=== PATIENT | male | born 2000 | race Caucasian/White ===

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

== ENCOUNTER 2021-08-12 17:23 | Emergency (ER) | payer MEDICAID ==
[~2021-08-12 17:23] MED LIST changes: +TORADOL PO
== END 2021-08-12 19:09 | disposition home or self-care (01) | DRG 951 ==
LOC: ED 17:23 → LWOBS 19:09
DX: Z53.21 Procedure and treatment not carried out due to patient leaving prior to being seen by health care provider (principal)

== ENCOUNTER 2021-11-13 14:46 | Emergency (ER) | payer MEDICAID ==
[~2021-11-13] VITALS: Ht 170.2 cm; Wt 85.0 kg
[2021-11-13 17:55] LABS: HEMATOCRIT 48.5 % (39.0-50.0); IMMATURE GRANULOCYTES 0.1 % (0.0-5.0); MEAN CELL VOLUME 86.1 fL CALC (80.0-100.0); MEAN CORPUSCULAR HGB 30.9 pG CALC (26.0-32.0); MEAN CORPUSCULAR HGB CONC 35.9 g/dL CAL (32.0-36.0); NEUT# 12.5 thou/uL (1.82-7.42); RED BLOOD COUNT 5.63 mill/uL (4.70-6.10); RED CELL DISTRI WIDTH 11.6 % (11.5-15.5)
[2021-11-13 17:58] LABS: HEMOGLOBIN 17.4 g/dl (14.0-18.0)
[2021-11-13 18:08] LABS: ALBUMIN 4.8 g/dL (3.2-5.0); ALKALINE PHOSPHATASE 98 u/l (38-126); ANION GAP 17 (6-22 (CALC)); BILIRUBIN, TOTAL 1.1 mg/dL (0.0-1.4); BUN 13 mg/dL (9-20); BUN/CREATININE RATIO 15 (12-20 (CALC)); CARBON DIOXIDE 23 mmol/l (22-30); CHLORIDE 102 mmol/l (95-108); CREATININE 0.9 mg/dL (0.7-1.3); GFR > 60 ML/MIN (>=60 (CALC)); GFR FOR AFR.AMER. > 60 ML/MIN (>=60 (CALC)); POTASSIUM 3.9 mmol/l (3.5-5.1); SGOT/AST 24 u/l (17-59); SODIUM 138 mmol/l (137-146); TOTAL PROTEIN 8.5 g/dL (6.3-8.2)
[2021-11-13] MEDS ORDERED: ZOFRAN4 M1 PO (18:16)
[2021-11-13 18:26] VITALS: BP 148/88
== END 2021-11-13 18:51 | disposition home or self-care (01) ==
LOC: ED 14:46
PROVIDERS: Family Medicine
DX: K52.9 Noninfective gastroenteritis and colitis, unspecified (principal); Z20.822 Contact with and (suspected) exposure to COVID-19

== ENCOUNTER 2022-01-13 06:42 | Emergency (ER) | payer OTHER, MEDICAID ==
[~2022-01-13] VITALS: Ht 170.2 cm; Wt 76.0 kg
[~2022-01-13 06:42] MED LIST changes: +ZOFRAN4 M1 PO
[2022-01-13 07:15] VITALS: BP 128/98
[2022-01-13 07:30] VITALS: BP 125/79
[2022-01-13 08:00] VITALS: BP 135/76
[2022-01-13 08:28] LABS: HEMATOCRIT 46.3 % (39.0-50.0); HEMOGLOBIN 16.3 g/dl (14.0-18.0); IMMATURE GRANULOCYTES 0.3 % (0.0-5.0); MEAN CELL VOLUME 87.7 fL CALC (80.0-100.0); MEAN CORPUSCULAR HGB 30.9 pG CALC (26.0-32.0); MEAN CORPUSCULAR HGB CONC 35.2 g/dL CAL (32.0-36.0); NEUT# 4.48 thou/uL (1.82-7.42); RED BLOOD COUNT 5.28 mill/uL (4.70-6.10); RED CELL DISTRI WIDTH 11.8 % (11.5-15.5)
[2022-01-13 08:35] LABS: ALBUMIN 4.7 g/dL (3.2-5.0); ALKALINE PHOSPHATASE 82 u/l (38-126); ANION GAP 14 (6-22 (CALC)); BUN 13 mg/dL (9-20); BUN/CREATININE RATIO 15 (12-20 (CALC)); CARBON DIOXIDE 22 mmol/l (22-30); CHLORIDE 108 mmol/l (95-108); CREATININE 0.8 mg/dL (0.7-1.3); GFR > 60 ML/MIN (>=60 (CALC)); GFR FOR AFR.AMER. > 60 ML/MIN (>=60 (CALC)); LIPASE 105 u/l (23-300); POTASSIUM 3.8 mmol/l (3.5-5.1); SGOT/AST 27 u/l (17-59); SODIUM 141 mmol/l (137-146); TOTAL PROTEIN 8.3 g/dL (6.3-8.2)
[2022-01-13 08:36] LABS: BILIRUBIN, TOTAL 0.6 mg/dL (0.0-1.4)
[2022-01-13] MEDS ORDERED: IBUPROFEN600 MG PO (08:54)
== END 2022-01-13 09:10 | disposition home or self-care (01) | DRG 313 ==
LOC: ED 06:42
PROVIDERS: Family Medicine
DX: R07.89 Other chest pain (principal); V43.61XA Car passenger injured in collision with sport utility vehicle in traffic accident, initial encounter

== ENCOUNTER 2022-01-23 23:11 | Emergency (ER) | payer OTHER, MEDICAID ==
[~2022-01-23] VITALS: Ht 170.2 cm; Wt 79.0 kg
[~2022-01-23 23:11] MED LIST changes: +IBUPROFEN600 MG PO
[2022-01-23 23:37] VITALS: BP 145/89
[2022-01-24] VITALS (7 sets, daily range): BP systolic 125–145; BP diastolic 74–98
[2022-01-24 00:24] LABS: HEMATOCRIT 44.4 % (39.0-50.0); HEMOGLOBIN 15.7 g/dl (14.0-18.0); IMMATURE GRANULOCYTES 0.1 % (0.0-5.0); MEAN CELL VOLUME 87.9 fL CALC (80.0-100.0); MEAN CORPUSCULAR HGB 31.1 pG CALC (26.0-32.0); MEAN CORPUSCULAR HGB CONC 35.4 g/dL CAL (32.0-36.0); NEUT# 10.55 thou/uL (1.82-7.42); RED BLOOD COUNT 5.05 mill/uL (4.70-6.10); RED CELL DISTRI WIDTH 11.7 % (11.5-15.5)
[2022-01-24 00:33] LABS: ALBUMIN 4.8 g/dL (3.2-5.0); ALKALINE PHOSPHATASE 85 u/l (38-126); ANION GAP 15 (6-22 (CALC)); BUN 16 mg/dL (9-20); BUN/CREATININE RATIO 17 (12-20 (CALC)); CARBON DIOXIDE 25 mmol/l (22-30); CHLORIDE 104 mmol/l (95-108); CREATININE 0.9 mg/dL (0.7-1.3); GFR > 60 ML/MIN (>=60 (CALC)); GFR FOR AFR.AMER. > 60 ML/MIN (>=60 (CALC)); POTASSIUM 4.1 mmol/l (3.5-5.1); SGOT/AST 26 u/l (17-59); SODIUM 139 mmol/l (137-146); TOTAL PROTEIN 8.7 g/dL (6.3-8.2)
[2022-01-24 00:44] LABS: MYOGLOBIN 47 ng/mL (0 - 121)
[2022-01-24] MEDS ORDERED: NAPROXEN500 MG PO (02:27)
== END 2022-01-24 02:37 | disposition home or self-care (01) | DRG 313 ==
LOC: ED 23:11
PROVIDERS: Emergency Medicine
DX: R07.89 Other chest pain (principal); V89.2XXD Person injured in unspecified motor-vehicle accident, traffic, subsequent encounter; B34.9 Viral infection, unspecified; Z20.822 Contact with and (suspected) exposure to COVID-19

== ENCOUNTER 2022-06-10 11:22 | Emergency (ER) | payer MEDICAID ==
[~2022-06-10] VITALS: Ht 170.2 cm; Wt 81.6 kg
[~2022-06-10 11:22] MED LIST changes: +NAPROXEN500 MG PO
[2022-06-10 11:39] VITALS: BP 139/87
[2022-06-10 12:00] VITALS: BP 128/91
[2022-06-10 12:19] LABS: HEMATOCRIT 47.3 % (39.0-50.0); HEMOGLOBIN 16.8 g/dl (14.0-18.0); IMMATURE GRANULOCYTES 0.3 % (0.0-5.0); MEAN CELL VOLUME 87.8 fL CALC (80.0-100.0); MEAN CORPUSCULAR HGB 31.2 pG CALC (26.0-32.0); MEAN CORPUSCULAR HGB CONC 35.5 g/dL CAL (32.0-36.0); NEUT# 4.57 thou/uL (1.82-7.42); RED BLOOD COUNT 5.39 mill/uL (4.70-6.10); RED CELL DISTRI WIDTH 11.8 % (11.5-15.5)
[2022-06-10 12:30] VITALS: BP 128/87
[2022-06-10 12:49] LABS: ALBUMIN 4.8 g/dL (3.2-5.0); ALKALINE PHOSPHATASE 75 u/l (38-126); ANION GAP 13 (6-22 (CALC)); BILIRUBIN, TOTAL 0.9 mg/dL (0.0-1.4); BUN 14 mg/dL (9-20); BUN/CREATININE RATIO 17 (12-20 (CALC)); CARBON DIOXIDE 26 mmol/l (22-30); CHLORIDE 106 mmol/l (95-108); CREATININE 0.8 mg/dL (0.7-1.3); GFR FOR AFR.AMER. > 60 ML/MIN (>=60 (CALC)); GFR OTHER RACES > 60 ML/MIN (>=60 (CALC)); POTASSIUM 3.9 mmol/l (3.5-5.1); SGOT/AST 25 u/l (17-59); SODIUM 141 mmol/l (137-146); TOTAL PROTEIN 8.1 g/dL (6.3-8.2)
[2022-06-10] MEDS ORDERED: METHOCARBAMOL500 MG PO (14:17)
[2022-06-10] MEDS ORDERED: NAPROXEN500 MG PO (14:17)
[2022-06-10] MEDS ORDERED: XANAX0.25 MG PO (14:27)
[2022-06-10 14:30] VITALS: BP 128/87
== END 2022-06-10 14:38 | disposition home or self-care (01) ==
LOC: ED 11:22
PROVIDERS: Family Medicine
DX: R07.89 Other chest pain (principal); F41.9 Anxiety disorder, unspecified

== ENCOUNTER 2023-04-19 01:17 | Emergency (ER) | payer OTHER ==
[~2023-04-19] VITALS: Ht 172.7 cm; Wt 79.0 kg
[~2023-04-19 01:17] MED LIST changes: +METHOCARBAMOL500 MG PO; +XANAX0.25 MG PO
[2023-04-19 01:28] VITALS: BP 141/91
[2023-04-19 01:30] VITALS: BP 142/84
[2023-04-19 01:45] VITALS: BP 139/81
[2023-04-19 02:54] LABS: BASO% 0.1 % (0-3); EOS% 0.2 % (0-8); HEMATOCRIT 51.9 % (39.0-50.0); HEMOGLOBIN 18.2 g/dl (14.0-18.0); IMMATURE GRANULOCYTES 0.6 % (0.0-5.0); LYMPH% 4.4 % (15-41); MEAN CELL VOLUME 86.6 fL CALC (80.0-100.0); MEAN CORPUSCULAR HGB 30.4 pG CALC (26.0-32.0); MEAN CORPUSCULAR HGB CONC 35.1 g/dL CAL (32.0-36.0); NEUT# 15.06 thou/uL (1.82-7.42); NEUT% 89.7 % (42-76); RED BLOOD COUNT 5.99 mill/uL (4.70-6.10); RED CELL DISTRI WIDTH 11.9 % (11.5-15.5)
[2023-04-19 03:15] LABS: ALBUMIN 5.5 g/dL (3.2-5.0); ALKALINE PHOSPHATASE 95 u/l (38-126); AMYLASE 52 u/l (30-110); BUN 18 mg/dL (9-20); BUN/CREATININE RATIO 18 (12-20 (CALC)); CARBON DIOXIDE 27 mmol/l (22-30); CHLORIDE 104 mmol/l (95-108); GFR FOR AFR.AMER. > 60 ML/MIN (>=60 (CALC)); GFR OTHER RACES > 60 ML/MIN (>=60 (CALC)); LIPASE 71 u/l (23-300); SGOT/AST 30 u/l (17-59); SODIUM 141 mmol/l (137-146); TOTAL PROTEIN 9.4 g/dL (6.3-8.2)
[2023-04-19 03:17] LABS: ANION GAP 15 (6-22 (CALC)); BILIRUBIN, TOTAL 1.7 mg/dL (0.2-1.3); POTASSIUM 5.2 mmol/l (3.5-5.1)
[2023-04-19 05:27] LABS: URINE BILIRUBIN - DIPSTICK NEGATIVE (NEGATIVE); URINE BLOOD DIPSTICK TRACE-LYSED (NEGATIVE); URINE COLOR YELLOW; URINE GLUCOSE - DIPSTICK NEGATIVE (NEGATIVE); URINE KETONE 15 mg/dL (NEGATIVE); URINE LEUK ESTERASE NEGATIVE (NEGATIVE); URINE PH 7.5 (4.5-8.0); URINE PROTEIN - DIPSTICK TRACE mg/dL (NEG-TRACE); URINE SPECIFIC GRAVITY 1.015; URINE UROBILINOGEN - DIPSTICK 0.2 E.U./dL (0.2)
[2023-04-19 05:33] LABS: URINE NITRITE - DIPSTICK NEGATIVE (Negative)
[2023-04-19] MEDS ORDERED: ONDANSETRON4 MG PO (06:10)
[2023-04-19] MEDS ORDERED: LOMOTIL2.5 MG PO (06:10)
[2023-04-19] MEDS ORDERED: CIPROFLOXACN500 MG PO (06:10)
[2023-04-19 06:55] VITALS: BP 139/81
== END 2023-04-19 06:55 | disposition home or self-care (01) | DRG 392 ==
LOC: ED 01:17
PROVIDERS: Emergency Medicine
DX: K52.9 Noninfective gastroenteritis and colitis, unspecified (principal); Z20.822 Contact with and (suspected) exposure to COVID-19
CPT/HCPCS: Q9967